=== PATIENT | female | born 1990 | race Caucasian/White ===

== ENCOUNTER 2016-11-08 20:16 | Emergency (ER) | payer OTHER ==
[2016-11-08 20:30] VITALS: BP 135/76
[2016-11-08] MEDS ORDERED: Albuterol/Ipratropium NEB.SOL* Albuterol 2.5 MG/Ipratropium 0.5 MG 3 ML INH ONE (20:47)
[2016-11-08] MEDS ORDERED: Albuterol/Ipratropium NEB.SOL* Albuterol 2.5 MG/Ipratropium 0.5 MG 3 ML ONE (20:50)
[2016-11-08] MEDS ORDERED: predniSONE TAB* 20 MG PO ONE (21:39)
[2016-11-08] MEDS ORDERED: DOXYcycline CAP(*) 100 MG PO ONE (21:40)
--- NOTE | 2016-11-08 21:55 | UC ---
Respiratory Complaint HPI - HPI Summary HPI Summary: This is a 25 yo female with preDM and hypothyroidism who recently quit smoking who presented with c/o cough, SOB, and congestion with fever and chills for the last 3d. She used her mother's nebulizer machine last night with some relief. She denies n/v or abd pain. No rashes. Her cough is dry. - History of Current Complaint Chief Complaint: UCRespiratory Stated Complaint: COUGH,SOB,BODY ACHES Hx Last Menstrual Period: taking medications to stop heavy menstraul flow - Allergies/Home Medications Allergies/Adverse Reactions: Allergies Allergy/AdvReac Type Severity Reaction Status Date / Time Pineapple Allergy Swelling Verified 11/08/16 20:30 Of Face,Lips,& Throat Home Medications: Home Medications Ferrous Gluconate TAB* [Fergon TAB*] 325 mg PO DAILY 11/08/16 [History Confirmed 11/08/16] PMH/Surg Hx/FS Hx/Imm Hx Previously Healthy: No Endocrine History: Diabetes, Thyroid Disease Other History Of: Negative For: HIV, Hepatitis B, Hepatitis C - Surgical History Surgical History: Yes Surgery Procedure, Year, and Place: hysteroscopy - Family History Known Family History: Positive: None - Social History Alcohol Use: None Substance Use Type: None Smoking Status (MU): Former Smoker Amount Used/How Often: 5 -10 cigs per day Length of Time of Smoking/Using Tobacco: ages 15 - 25 When Did the Patient Quit Smoking/Using Tobacco: Quit September 2016 Household Exposure Type: Cigarettes - Immunization History Most Recent Influenza Vaccination: no Review of Systems Constitutional: Fever Skin: Negative Eyes: Negative ENT: Nasal Discharge Respiratory: Shortness Of Breath, Cough Cardiovascular: Negative Gastrointestinal: Negative Genitourinary: Negative Motor: Negative Neurovascular: Negative Musculoskeletal: Negative Neurological: Negative Psychological: Negative All Other Systems Reviewed And Are Negative: Yes Physical Exam Triage Information Reviewed: Yes Appearance: Ill-Appearing - freq dry cough Vital Signs: Initial Vital Signs Temp 98.3 F 11/08/16 20:24 Pulse 101 11/08/16 20:24 Resp 20 11/08/16 20:24 BP 135/76 11/08/16 20:24 Pulse Ox 100 11/08/16 20:24 Vital Signs Reviewed: Yes ENT: Positive: Normal ENT inspection Respiratory Exam: Other - freq dry cough Respiratory: Positive: Lungs clear - few coarse sounds Cardiovascular Exam: Normal Cardiovascular: Positive: RRR, No Murmur Abdomen Description: Positive: Nontender, Soft Skin Exam: Normal Skin: Negative: rashes UC Diagnostic Evaluation - Laboratory O2 Sat by Pulse Oximetry: 100 Re-Evaluation - Re-Evaluation First Eval Re-Evaluation Time: 21:45 Change: Improved Comment: improved freq of cough and SOB after DuoNebs Respiratory Course/Dx - Course Course Of Treatment: This is a 25 yo female with preDM and hypothyroidism who presented with c/o cough and SOB with fever and chills x 3d. Lung exam is fairly benign. Recommend treatment for acute bronchitis. - Differential Dx/Diagnosis Differential Diagnosis/HQI/PQRI: Asthma, Bronchitis, Influenza, Laryngitis, Sinusitis Provider Diagnoses: 1. Acute bronchitis Discharge - Discharge Plan Condition: Stable Disposition: HOME Prescriptions: Albuterol HFA INHALER* [Ventolin HFA Inhaler*] 2 puff INH Q4H PRN #1 mdi PRN Reason: SOB/cough Doxycycline Hyclate [Doxycycline Hyclate Dr] 100 mg PO BID #14 tab predniSONE TAB* [Deltasone TAB*] 40 mg PO DAILY #9 tab Patient Education Materials: Acute Bronchitis (ED) Forms: *Work Release Referrals: Praveena Schmidt MD [Primary Care Provider] - If Needed Additional Instructions: Activity: As tolerated Instructions: 1. Please take medications as directed 2. Follow up with your PCP if needed
== END 2016-11-08 21:54 | disposition home or self-care (01) ==
LOC: UCCORT 20:16
DX: J20.9 Acute bronchitis, unspecified (principal); R73.03 Prediabetes; E03.9 Hypothyroidism, unspecified; Z90.710 Acquired absence of both cervix and uterus; Z87.891 Personal history of nicotine dependence
CPT/HCPCS: 99213; A9270-GY; G0463; J7512

== ENCOUNTER 2017-05-01 10:11 | Emergency (ER) | payer OTHER ==
[2017-05-01 12:56] VITALS: BP 121/68
[2017-05-01] MEDS ORDERED: Ondansetron ODT TAB* 4 MG PO ONE (13:06)
--- NOTE | 2017-05-01 13:29 | UC ---
Throat Pain/Nasal Hakeem HPI - HPI Summary HPI Summary: Pt c/o gradual onset of nasal congestion, sinus pressure and pain, nausea, vomiting X 2 weeks. - History of Current Complaint Chief Complaint: UCGeneralIllness Stated Complaint: SINUSES Time Seen by Provider: 05/01/17 12:46 Hx Obtained From: Patient Hx Last Menstrual Period: UTERINE ABLASION, DOES NOT HAVE PERIODS ?: No Onset/Duration: Gradual Onset, Lasting Weeks - 2, Still Present, Worse Since - onset Severity: Moderate Pain Intensity: 6 Associated Signs & Symptoms: Positive: Sinus Discomfort Related History: Seasonal Allergies - Epiglottits Risk Factors Epiglottis Risk Factors: Negative - Allergies/Home Medications Allergies/Adverse Reactions: Allergies Allergy/AdvReac Type Severity Reaction Status Date / Time Pineapple [Pineapple] Allergy Swelling Verified 05/01/17 12:42 Of Face,Lips,& Throat Home Medications: Home Medications Calcium Citrate 200 mg PO BID 05/01/17 [History Confirmed 05/01/17] Cyanocobalamin (Vitamin B-12) [Vitamin B-12] 1,000 mcg PO 05/01/17 [History] Multivitamin with Minerals [One Daily Complete] 1 each PO 05/01/17 [History] PMH/Surg Hx/FS Hx/Imm Hx Previously Healthy: Yes Other History Of: Negative For: HIV, Hepatitis B, Hepatitis C - Surgical History Surgical History: Yes Surgery Procedure, Year, and Place: hysteroscopy. GASTRIC BYPASS, 2016 - Family History Known Family History: Positive: Cardiac Disease - Social History Occupation: Employed Full-time Lives: With Family Alcohol Use: Rare Substance Use Type: None Smoking Status (MU): Light Every Day Tobacco Smoker Type: Cigarettes Amount Used/How Often: 3-4 CIGS PER DAY Length of Time of Smoking/Using Tobacco: ages 15 - 25 Have You Smoked in the Last Year: Yes When Did the Patient Quit Smoking/Using Tobacco: Quit September 2016 Household Exposure Type: Cigarettes - Immunization History Most Recent Influenza Vaccination: no Review of Systems Constitutional: Chills, Fatigue Skin: Negative Eyes: Negative ENT: Sinus Congestion, Sinus Pain/Tenderness Respiratory: Cough Cardiovascular: Negative Gastrointestinal: Negative Genitourinary: Negative Motor: Negative Neurovascular: Negative Musculoskeletal: Myalgia Neurological: Headache Psychological: Negative Is Patient Immunocompromised?: No All Other Systems Reviewed And Are Negative: Yes Physical Exam Triage Information Reviewed: Yes Appearance: Well-Appearing Vital Signs: Initial Vital Signs Temp 97.7 F 05/01/17 12:46 Pulse 65 05/01/17 12:46 Resp 16 05/01/17 12:46 BP 121/68 05/01/17 12:46 Pulse Ox 100 05/01/17 12:46 Eye Exam: Normal ENT Exam: Other ENT: Positive: Nasal congestion, Sinus tenderness Dental Exam: Normal Neck exam: Normal Respiratory Exam: Normal Cardiovascular Exam: Normal Abdominal Exam: Normal Abdomen Description: Positive: Nontender Musculoskeletal Exam: Normal Neurological Exam: Normal Psychological Exam: Normal Skin Exam: Normal Diagnostics - Laboratory Diagnostic Studies Completed/Ordered: RApid flu negative Throat Pain/Nasal Course/Dx - Differential Dx/Diagnosis Differential Diagnosis/HQI/PQRI: Influenza, Sinusitis Provider Diagnoses: sinusitis Discharge - Discharge Plan Condition: Stable Disposition: HOME Prescriptions: Amoxicillin PO (*) [Amoxicillin 875 MG (*)] 875 mg PO Q12H #20 tab Patient Education Materials: Sinusitis (ED) Referrals: Praveena Schmidt MD [Primary Care Provider] - If Needed
== END 2017-05-01 13:45 | disposition home or self-care (01) ==
LOC: UCCORT 10:11
DX: J32.9 Chronic sinusitis, unspecified (principal); Z87.891 Personal history of nicotine dependence
CPT/HCPCS: 87502; 99212; A9270-GY; G0463

== ENCOUNTER 2018-04-11 19:31 | Emergency (ER) | payer OTHER ==
[2018-04-11 21:12] VITALS: BP 118/60
--- NOTE | 2018-04-11 21:54 | UC ---
Throat Pain/Nasal Hakeem HPI - HPI Summary HPI Summary: 27-year-old female presents with 4 day history of sore throat. Associated with a subjective fever and chills. Denies ear pain, nasal congestion, dysphagia, cough, chest pain, shortness of breath, abdominal pain, nausea, vomiting, or diarrhea. - History of Current Complaint Chief Complaint: UCRespiratory Stated Complaint: ST Time Seen by Provider: 04/11/18 21:19 Hx Obtained From: Patient Hx Last Menstrual Period: unknown Pain Intensity: 7 - Allergies/Home Medications Allergies/Adverse Reactions: Allergies Allergy/AdvReac Type Severity Reaction Status Date / Time pineapple Allergy Swelling Verified 04/11/18 21:05 Of Face,Lips,& Throat PMH/Surg Hx/FS Hx/Imm Hx Endocrine History: Hypothyroidism Respiratory History: Asthma Psychological History: Anxiety, Depression Other History Of: Negative For: HIV, Hepatitis B, Hepatitis C - Surgical History Surgical History: Yes Surgery Procedure, Year, and Place: hysteroscopy. GASTRIC BYPASS, 2016 - Family History Known Family History: Positive: Cardiac Disease - Social History Occupation: Employed Full-time Lives: With Family Alcohol Use: Rare Substance Use Type: None Substance Use Comment - Amount & Last Used: occasional usage Smoking Status (MU): Light Every Day Tobacco Smoker Type: Cigarettes Amount Used/How Often: 3-4 CIGS PER DAY Length of Time of Smoking/Using Tobacco: ages 15 - 25 Have You Smoked in the Last Year: Yes When Did the Patient Quit Smoking/Using Tobacco: Quit September 2016 Household Exposure Type: Cigarettes - Immunization History Most Recent Influenza Vaccination: no Review of Systems All Other Systems Reviewed And Are Negative: Yes Constitutional: Positive: Fever, Chills Skin: Negative: Rash Eyes: Negative: Drainage, Eye Redness ENT: Positive: Sore Throat. Negative: Ear Ache, Nasal Discharge, Sinus Congestion, Sinus Pain/Tenderness Respiratory: Negative: Shortness Of Breath, Cough Cardiovascular: Negative: Palpitations, Chest Pain Gastrointestinal: Negative: Abdominal Pain, Vomiting, Diarrhea, Nausea Genitourinary: Positive: Negative Musculoskeletal: Positive: Negative Neurological: Positive: Negative Is Patient Immunocompromised?: No Physical Exam - Summary Physical Exam Summary: GENERAL APPEARANCE: Well developed, well nourished, alert and cooperative, and appears to be in no acute distress. EYES: Conjunctiva clear. No discharge. Vision is grossly intact. EARS: External auditory canals and tympanic membranes clear, hearing grossly intact. NOSE: No nasal congestion or discharge. THROAT: Pharyngeal erythema. No tonsilar inflammation, swelling, exudate, or lesions. Oral cavity normal. Uvula midline. Teeth and gingiva in good general condition. NECK: Neck supple, non-tender without lymphadenopathy. CARDIAC: Normal S1 and S2. No S3, S4 or murmurs. Rhythm is regular. There is no peripheral edema, cyanosis or pallor. Extremities are warm and well perfused. Capillary refill is less than 2 seconds. LUNGS: Clear to auscultation without rales, rhonchi, wheezing or diminished breath sounds. ABDOMEN: Positive bowel sounds. Soft, nondistended, nontender. No guarding or rebound. No masses or hepatosplenomegally. MUSKULOSKELETAL: ROM intact to all extremities. No joint erythema or tenderness. Normal muscular development. Normal gait. SKIN: Skin normal color, texture and turgor with no lesions or eruptions. Triage Information Reviewed: Yes Vital Signs: Initial Vital Signs Temp 97.8 F 04/11/18 21:08 Pulse 62 04/11/18 21:08 Resp 16 04/11/18 21:08 BP 118/60 04/11/18 21:08 Pulse Ox 98 04/11/18 21:08 Vital Signs Reviewed: Yes Diagnostics - Laboratory Diagnostic Studies Completed/Ordered: Rapid strep negative. Throat Pain/Nasal Course/Dx - Course Course Of Treatment: 27-year-old female presents with 4 day history of sore throat. Associated with a subjective fever and chills. Denies ear pain, nasal congestion, dysphagia, cough, chest pain, shortness of breath, abdominal pain, nausea, vomiting, or diarrhea. Afebrile. Vital signs stable. Exam revealed adult female in no acute distress with mild pharyngeal erythema without tonsillar swelling, exudate, or cervical lymphadenopathy. Remainder of exam was unremarkable. Rapid strep test was negative. Recommending symptomatic treatment for a viral pharyngitis. She is to follow-up with her primary care provider in 5 days if symptoms persist. Anticipatory guidance and warning symptoms were reviewed with the patient. - Differential Dx/Diagnosis Differential Diagnosis/HQI/PQRI: Mononucleosis, Pharyngitis, Tonsillitis, URI Provider Diagnosis: Viral pharyngitis Discharge - Sign-Out/Discharge Documenting (check all that apply): Patient Departure All imaging exams completed and their final reports reviewed: No Studies - Discharge Plan Condition: Stable Disposition: HOME Patient Education Materials: Pharyngitis (ED) Referrals: Deyanira Khan [Primary Care Provider] - 5 Days (If no improvement in symptoms.) Additional Instructions: Your rapid strep test in the clinic today was negative. Your symptoms are likely from a viral infection. Viral infections do not respond to antibiotics and are limited to the treatment of symptoms. Viral infections typically run their course in 7-10 days. Drink plenty of fluids to avoid dehydration especially if you are running any fever. Use salt water gargles several times a day. Take over the counter acetaminophen (Tylenol) or ibuprofen (Advil, Motrin) according to directions as needed for pain or fever. You may also use Chloraseptic spray or Cepacol lonzenges according to directions which contain a numbing medication and can provide some temporary relief from your sore throat. Return here or follow up with your primary care provider in 7 days if symptoms persist. Seek immediate medical attention in the emergency room if you have fever greater than 100.5 F despite taking acetaminophen or ibuprofen, are unable to swallow or develop drooling, are unable to open your mouth fully, are unable to eat or drink, have pain that is not relieved with over the counter pain medication, or have any difficulty breathing. - Billing Disposition and Condition Condition: STABLE Disposition: Home - Attestation Statements Provider Attestation: Per institutional requirements, I have reviewed the chart, however, I was not consulted specifically or made aware of this patient by the midlevel provider. I did not personally evaluate, interact with , or disposition this patient.
== END 2018-04-11 22:06 | disposition home or self-care (01) ==
LOC: UCCORT 19:31
DX: J02.9 Acute pharyngitis, unspecified (principal); J45.909 Unspecified asthma, uncomplicated; Z91.018 Allergy to other foods; Z98.84 Bariatric surgery status; Z87.891 Personal history of nicotine dependence
CPT/HCPCS: 87651; 99211; G0463

== ENCOUNTER 2018-06-18 19:41 | Emergency (ER) | payer OTHER ==
[2018-06-18 20:41] VITALS: BP 118/68
[2018-06-18] MEDS ORDERED: Acetaminophen TAB* 325 MG PO ONE (20:54)
--- NOTE | 2018-06-18 20:57 | UC ---
UC General HPI - HPI Summary HPI Summary: PER TRIAGE, sx started 06/16/18-headache, sinus congestion, runny nose, chest congestion, cough, upper body aches. hx asthma. - History of Current Complaint Chief Complaint: UCGeneralIllness Stated Complaint: BODY ACHES, COUGH, DIARRHEA Time Seen by Provider: 06/18/18 20:42 Hx Obtained From: Patient Hx Last Menstrual Period: ablation 2016 Timing: Constant Pain Intensity: 8 Associated Signs & Symptoms: Positive: Diarrhea - X1, Vomiting - X1 - Allergy/Home Medications Allergies/Adverse Reactions: Allergies Allergy/AdvReac Type Severity Reaction Status Date / Time ibuprofen Allergy Unknown gastric Verified 06/18/18 20:43 bypass pineapple Allergy Swelling Verified 06/18/18 20:43 Of Face,Lips,& Throat PMH/Surg Hx/FS Hx/Imm Hx - Additional Past Medical History Additional PMH: gastric bypass Endocrine History: Thyroid Disease Respiratory History: Asthma Psychological History: Anxiety, Depression Other History Of: Negative For: HIV, Hepatitis B, Hepatitis C - Surgical History Surgical History: Yes Surgery Procedure, Year, and Place: hysteroscopy. GASTRIC BYPASS, 2016. D & C with ablation 2016 - Family History Known Family History: Positive: Cardiac Disease - Social History Alcohol Use: Rare Substance Use Type: None Substance Use Comment - Amount & Last Used: occasional usage Smoking Status (MU): Former Smoker Type: Cigarettes Amount Used/How Often: 3-4 CIGS PER DAY Length of Time of Smoking/Using Tobacco: ages 15 - 25 Have You Smoked in the Last Year: Yes When Did the Patient Quit Smoking/Using Tobacco: 2 weeks ago Household Exposure Type: Cigarettes - Immunization History Most Recent Influenza Vaccination: no Review of Systems All Other Systems Reviewed And Are Negative: Yes ENT: Positive: Sinus Congestion Respiratory: Positive: Cough Gastrointestinal: Positive: Vomiting - X1, Diarrhea - X1. Negative: Abdominal Pain Musculoskeletal: Positive: Myalgia Neurological: Positive: Headache Physical Exam Triage Information Reviewed: Yes Appearance: Well-Appearing Vital Signs: Initial Vital Signs Temp 97.7 F 06/18/18 20:38 Pulse 83 06/18/18 20:38 Resp 17 06/18/18 20:38 BP 118/68 06/18/18 20:38 Pulse Ox 100 06/18/18 20:38 Vital Signs Reviewed: Yes Eyes: Positive: Conjunctiva Clear ENT: Positive: Pharyngeal erythema, Nasal congestion, Nasal drainage - CLEAR, TMs normal Neck: Positive: Supple, Nontender, No Lymphadenopathy Respiratory: Positive: Lungs clear, Normal breath sounds, No respiratory distress Cardiovascular: Positive: RRR, No Murmur Abdomen Description: Positive: Nontender, No Organomegaly, Soft. Negative: Distended, Guarding Bowel Sounds: Positive: Present Musculoskeletal: Positive: ROM Intact Neurological: Positive: Alert Psychological: Positive: Age Appropriate Behavior Skin Exam: Normal Course/Dx - Course Course Of Treatment: RAPID FLU=NEGATIVE - Differential Dx - Multi-Symptom Differential Diagnoses: Other - NO INDICATION FOR ANTIBIOTICS. - Diagnoses Provider Diagnosis: Viral syndrome Discharge - Sign-Out/Discharge Documenting (check all that apply): Patient Departure All imaging exams completed and their final reports reviewed: No Studies - Discharge Plan Condition: Stable Disposition: HOME Prescriptions: Albuterol HFA INHALER* [Ventolin HFA Inhaler*] 2 puff INH Q6H PRN #1 mdi PRN Reason: Cough Patient Education Materials: Viral Syndrome (ED) Forms: *Work Release Referrals: Deyanira Khan [Primary Care Provider] - Additional Instructions: FOLLOW UP PRIMARY CARE IF NOT BETTER IN 3-5 DAYS OR SOONER IF WORSE. - Billing Disposition and Condition Condition: STABLE Disposition: Home
[2018-06-18 21:01] LABS: Influenza A Molecular NEGATIVE (Negative); Influenza B Molecular NEGATIVE (Negative)
== END 2018-06-18 21:09 | disposition home or self-care (01) ==
LOC: UCCORT 19:41
DX: B34.9 Viral infection, unspecified (principal); R05 Cough; R51 Headache; R09.81 Nasal congestion; R19.7 Diarrhea, unspecified; R11.10 Vomiting, unspecified; R09.89 Other specified symptoms and signs involving the circulatory and respiratory systems; J45.909 Unspecified asthma, uncomplicated; Z88.8 Allergy status to other drugs, medicaments and biological substances; Z91.018 Allergy to other foods
CPT/HCPCS: 99212; A9270-GY; G0463

== ENCOUNTER 2018-07-06 13:36 | Emergency (ER) | payer OTHER ==
[2018-07-06 13:55] VITALS: BP 112/55
--- NOTE | 2018-07-06 14:13 | UC ---
Throat Pain/Nasal Hakeem HPI - HPI Summary HPI Summary: Patient has been ill with cold symptoms over the past 2 weeks and now with head congestion, sinus pressure and productive cough of greenish sputum. She does not feel short of breath. She has no fever or chills. She has no history of asthma as an adult however she does carry an inhaler which is and would like a refill of that. - History of Current Complaint Chief Complaint: UCGeneralIllness Stated Complaint: COUGH,BACK/CHEST PAIN,ALVAREZ Time Seen by Provider: 07/06/18 13:53 Hx Obtained From: Patient Hx Last Menstrual Period: ablation 2017 ?: No Onset/Duration: Gradual Onset Severity: Mild Pain Intensity: 7 Cough: Productive - Dr. cough of greenish yellow sputum. Associated Signs & Symptoms: Positive: Sinus Discomfort, Nasal Discharge - Epiglottits Risk Factors Epiglottis Risk Factors: Negative - Allergies/Home Medications Allergies/Adverse Reactions: Allergies Allergy/AdvReac Type Severity Reaction Status Date / Time ibuprofen Allergy Unknown gastric Verified 06/18/18 20:43 bypass pineapple Allergy Swelling Verified 06/18/18 20:43 Of Face,Lips,& Throat PMH/Surg Hx/FS Hx/Imm Hx Previously Healthy: Yes Endocrine History: Thyroid Disease Other History Of: Negative For: HIV, Hepatitis B, Hepatitis C - Surgical History Surgical History: Yes Surgery Procedure, Year, and Place: hysteroscopy. GASTRIC BYPASS, 2016. D & C with ablation 2016 - Family History Known Family History: Positive: Cardiac Disease - Social History Alcohol Use: Rare Substance Use Type: None Substance Use Comment - Amount & Last Used: occasional usage Smoking Status (MU): Former Smoker Type: Cigarettes Amount Used/How Often: 3-4 CIGS PER DAY Length of Time of Smoking/Using Tobacco: ages 15 - 25 Have You Smoked in the Last Year: Yes When Did the Patient Quit Smoking/Using Tobacco: 2 weeks ago Household Exposure Type: Cigarettes - Immunization History Most Recent Influenza Vaccination: no Review of Systems All Other Systems Reviewed And Are Negative: Yes ENT: Positive: Nasal Discharge, Sinus Congestion, Sinus Pain/Tenderness - Bilateral maxillary tenderness. Respiratory: Positive: Cough - Productive cough of green sputum. No shortness of breath. Is Patient Immunocompromised?: No Physical Exam Triage Information Reviewed: Yes Appearance: Well-Appearing, No Pain Distress, Well-Nourished Vital Signs: Initial Vital Signs Temp 98.5 F 07/06/18 13:50 Pulse 80 07/06/18 13:50 Resp 16 07/06/18 13:50 BP 112/55 07/06/18 13:50 Pulse Ox 99 07/06/18 13:50 Vital Signs Reviewed: Yes Eye Exam: Normal ENT: Positive: Pharynx normal - Yellowish post nasal drainage posteriorly., Nasal congestion, Nasal drainage - Turbinates inflamed with yellowish nasal coryza. Tympanic membrane is mildly injected but with good land aguilar and light reflex, right tympanic membrane pearly lopez with good land aguilar and light reflex., Sinus tenderness - Bilateral maxillary sinus tenderness on palpation., Uvula midline. Negative: Tonsillar swelling, Tonsillar exudate, Trismus, Muffled voice, Hoarse voice Neck: Positive: Supple, Nontender, No Lymphadenopathy Respiratory: Positive: Lungs clear, Normal breath sounds, No respiratory distress, No accessory muscle use Cardiovascular: Positive: RRR, No Murmur, Pulses Normal, Brisk Capillary Refill Abdomen Description: Positive: Nontender, No Organomegaly, Soft Bowel Sounds: Positive: Present Musculoskeletal Exam: Normal Neurological Exam: Normal Psychological Exam: Normal Skin Exam: Normal Throat Pain/Nasal Course/Dx - Course Course Of Treatment: Patient has been comfortable here. We did treat her for sinusitis with doxycycline and I gave her refill of her albuterol inhaler. She was advised not to take her calcium supplement or any other vitamins or dairy products 2 hours prior to taking doxycycline and 2 hours after. - Differential Dx/Diagnosis Provider Diagnosis: Sinusitis, Bronchitis Discharge - Sign-Out/Discharge Documenting (check all that apply): Patient Departure All imaging exams completed and their final reports reviewed: No Studies - Discharge Plan Condition: Fair Disposition: HOME Prescriptions: Albuterol HFA INHALER* [Ventolin HFA Inhaler*] 2 puff INH Q4H PRN 5 Days #1 mdi PRN Reason: Wheezing DOXYcycline CAP(*) [DOXYcycline 100MG CAP(*)] 100 mg PO BID 10 Days #20 cap Patient Education Materials: Sinusitis (ED), Acute Bronchitis (ED) Referrals: Deyanira Khan [Primary Care Provider] - Additional Instructions: Increase fluids, rest, no dairy products, antacids or your calcium supplement 2 hours prior to taking the doxycycline and 2 hours after taking the doxycycline however be sure and take it with food. Definite follow-up with her primary care provider on Tuesday or Tuesday if no improvement. Use albuterol inhaler 2 puffs every 4-6 hours as needed for any more tight cough. - Billing Disposition and Condition Condition: FAIR Disposition: Home
== END 2018-07-06 14:15 | disposition home or self-care (01) ==
LOC: UCCORT 13:36
DX: J32.9 Chronic sinusitis, unspecified (principal); J40 Bronchitis, not specified as acute or chronic; Z87.891 Personal history of nicotine dependence; Z88.8 Allergy status to other drugs, medicaments and biological substances; Z91.018 Allergy to other foods
CPT/HCPCS: 99212; G0463

== ENCOUNTER 2019-05-09 14:31 | Emergency (ER) | payer MEDICAID ==
[2019-05-09 14:45] VITALS: BP 104/50
--- NOTE | 2019-05-09 15:05 | UC ---
Complaint Female HPI - HPI Summary HPI Summary: 28-year-old female presenting with complaint of RLQ pain and red/brown vaginal discharge on toilet paper that began today. Patient also notes urinary frequency and cloudy urine 1 week. States pain radiates to her right lower back. Notes some nausea. Denies vomiting and diarrhea. Denies decreased appetite. Denies changes in BMs. Denies fever and chills. Denies chance of or concern for STIs. A2. States no longer gets menstrual periods after uterine ablation 2 years ago. PMHx significant for two miscarriages ~10 years ago. Denies history of ovarian cysts. PSHx significant for gastric bypass and uterine ablation - History Of Current Complaint Chief Complaint: UCGU Stated Complaint: URINARY CONCERN Hx Obtained From: Patient Hx Last Menstrual Period: ablation Pain Intensity: 8 Pain Scale Used: 0-10 Numeric - Allergies/Home Medications Allergies/Adverse Reactions: Allergies Allergy/AdvReac Type Severity Reaction Status Date / Time ibuprofen Allergy Unknown gastric Verified 05/09/19 14:41 bypass pineapple Allergy Swelling Verified 05/09/19 14:41 Of Face,Lips,& Throat Home Medications: Home Medications Levothyroxine Sodium [Levoxyl] 200 mcg PO QAM 01/05/14 [History Confirmed ] Ferrous Gluconate TAB* [Fergon TAB*] 325 mg PO DAILY 11/08/16 [History Confirmed 05/09/19] Calcium Citrate 200 mg PO BID 05/01/17 [History Confirmed 05/09/19] Cyanocobalamin (Vitamin B-12) [Vitamin B-12] 1,000 mcg PO DAILY 05/01/17 [ History Confirmed 05/09/19] Multivitamin with Minerals [One Daily Complete] 1 each PO DAILY 05/01/17 [ History Confirmed 05/09/19] Buspirone HCl 10 mg PO DAILY PRN 11/28/17 [History Confirmed 05/09/19] Escitalopram Oxalate [Lexapro 20 mg] 20 mg PO DAILY 11/28/17 [History Confirmed 05/09/19] lamoTRIgine [Lamictal] 100 mg PO DAILY 11/28/17 [History Confirmed 05/09/19] Albuterol HFA INHALER* [Ventolin HFA Inhaler*] 2 puff INH Q4H PRN 5 Days #1 mdi 07/06/18 [Rx Confirmed 05/09/19] PMH/Surg Hx/FS Hx/Imm Hx Other History Of: Negative For: HIV, Hepatitis B, Hepatitis C - Surgical History Surgical History: None Surgery Procedure, Year, and Place: hysteroscopy; GASTRIC BYPASS, 2016; D & C with ablation 2016 - Family History Known Family History: Positive: Cardiac Disease - Social History Alcohol Use: Rare Substance Use Type: None Substance Use Comment - Amount & Last Used: occasional usage Smoking Status (MU): Former Smoker Type: Cigarettes Amount Used/How Often: 3-4 CIGS PER DAY Length of Time of Smoking/Using Tobacco: ages 15 - 25 Have You Smoked in the Last Year: Yes When Did the Patient Quit Smoking/Using Tobacco: 03/2019 Household Exposure Type: Cigarettes - Immunization History Most Recent Influenza Vaccination: no Review of Systems All Other Systems Reviewed And Are Negative: Yes Constitutional: Positive: Negative Respiratory: Positive: Negative Cardiovascular: Positive: Negative Gastrointestinal: Positive: Abdominal Pain - right pelvic pain, Nausea. Negative: Vomiting, Diarrhea Genitourinary: Positive: Frequency, Vaginal/Penile Discharge - red/brown discharge Musculoskeletal: Positive: Negative Neurological/Mental Status: Positive: Negative Physical Exam - Summary Physical Exam Summary: Vital Signs Reviewed: Yes A+Ox3, no distress Eyes: Conjunctiva Clear ENT: Hearing grossly normal Neck: Positive: Supple Respiratory: Positive: No respiratory distress, No accessory muscle use + CTA throughout no w/r Cardiovascular: RRR nl s1, s2 no m/r Abd: soft + BS, +TTP RLQ, no distention, no guarding Musculoskeletal Exam: PALMA x 4 without difficulty Neurological: Positive: Alert Psychological: Positive: age appropriate behavior Skin: Positive: no rash, no ecchymosis Vital Signs: Initial Vital Signs Temp 98.2 F 05/09/19 14:42 Pulse 67 05/09/19 14:42 Resp 15 05/09/19 14:42 BP 104/50 05/09/19 14:42 Pulse Ox 100 05/09/19 14:42 Lab Results 05/09/19 05/09/19 Range/Units 15:10 15:11 POC Urine Color Yellow POC Urine Clarity Clear POC Urine pH 6.5 (5-9) POC Ur Specif [place] 1.020 (1.010-1.030) POC Urine Protein Negative (Negative) POC Ur Glucose (UA) Negative (Negative) POC Urine Ketones Negative (Negative) POC Urine Blood Trace-intact (Negative) POC Urine Nitrite Negative (Negative) POC Urine Bilirubin Negative (Negative) POC Urine Urobilinogen 0.2 (Negative) POC U Leukocyte Esteras Negative (Negative) POC Ur Test Negative (Negative) Complaint Female Dx - Course Course Of Treatment: UA positive for trace blood. Negative urine . Patient declined pelvic exam. Discussed these results with patient and concern for possible ovarian cyst/torsion, or appendicitis. I informed the patient that it is recommended she receive further imaging and possible lab work in the emergency department to rule out ovarian cyst, ovarian torsion, and appendicitis. The patient voiced understanding and agreed to herself to [place] ED upon departure from the urgent care. Patient stable and in no pain distress upon departure. Discussed patient with Dr. Brandt who also agreed with plan. - Differential Dx/Diagnosis Differential Diagnosis/HQI/PQRI: Appendicitis, Ectopic, Ovarian Cyst, Ovarian Torsion, Pelvic Inflammatory Disease, Sexually Transmitted Disease, Urinary Tract Infection Provider Diagnosis: Right lower quadrant abdominal pain, Vaginal spotting, Urinary frequency Discharge ED - Sign-Out/Discharge Documenting (check all that apply): Patient Departure All imaging exams completed and their final reports reviewed: No Studies - Discharge Plan Condition: Stable Disposition: HOME-RECOMMEND TO ED Patient Education Materials: Pelvic Pain (ED) Additional Instructions: The provider that evaluated you today thinks that you need additional testing that can be completed the emergency department. It is recommended that you go directly to emergency department for further evaluation. This evaluation included blood work or imaging. This testing will be directed and decided by the provider that evaluates you at the emergency department. If pain becomes worse, you feel lightheaded, or you have any other concerns while you are being driven to emergency department, it is recommended to pullover and contact 911. - Billing Disposition and Condition Condition: STABLE Disposition: Home-Recommend to ED
== END 2019-05-09 15:40 | disposition home health service (06) ==
LOC: UCCORT 14:31
DX: R10.31 Right lower quadrant pain (principal); N93.9 Abnormal uterine and vaginal bleeding, unspecified; R35.0 Frequency of micturition; Z87.891 Personal history of nicotine dependence; Z88.6 Allergy status to analgesic agent; Z91.018 Allergy to other foods
CPT/HCPCS: 81003; 84702; 99212; G0463

== ENCOUNTER 2021-02-15 14:06 | Inpatient (IN) ==
[2021-02-15 15:50] LABS: ABS Eosinophils 0.1 10^3/ul (0-0.6); ABS Monocytes 0.3 10^3/ul (0-0.8); ABS Neutrophils 3.3 10^3/ul (1.5-7.7); Eosinophil % 1.5 %; Hematocrit 42 % (35-47); Hemoglobin 14.5 g/dL (12.0-16.0); Lymphocyte % 34.6 %; Mean Corpuscular HGB Conc 35 g/dL (31-36); Mean Corpuscular Hemoglobin 29 pg (27-31); Mean Corpuscular Volume 84 fL (80-97); Mean Platelet Volume 9.4 fL (7.4-10.4); Platelet Count 172 10^3/uL (150-450); Red Blood Count 4.93 10^6 /uL (3.70-4.87); Red Cell Distribution Width 13 % (10-15); White Blood Count 5.8 10^3/uL (3.5-10.8)
[2021-02-15 15:58] LABS: Urine Appearance Cloudy; Urine Bilirubin Negative (Negative); Urine Blood Negative (Negative); Urine Color Yellow; Urine Glucose Negative (Negative); Urine Ketones Negative (Negative); Urine Nitrite Negative (Negative); Urine Protein Negative (Negative); Urine Specific Gravity 1.011 (1.002-1.030); Urine Urobilinogen Negative (Negative)
[2021-02-15 16:06] LABS: Urine Benzodiazepine Screen None Detected (None Detect); Urine Cannabinoids Screen Presumptive Positive (None Detect); Urine Opiates Screen None Detected (None Detect)
[2021-02-15 16:07] LABS: ALT 12 U/L (7-52); AST 17 U/L (13-39); Albumin 4.4 g/dL (3.2-5.2); Albumin/Globulin Ratio 1.6 (1-3); Alkaline Phosphatase 27 U/L (35-149); Anion Gap 5 mmol/L (2-11); Blood Urea Nitrogen 7 mg/dL (6-24); CO2 Carbon Dioxide 29 mmol/L (22-32); Calcium 9.4 mg/dL (8.6-10.3); Chloride 104 mmol/L (101-111); Globulin 2.7 g/dL (2-4); Glucose 98 mg/dL (70-100); Sodium 138 mmol/L (135-145); Total Protein 7.1 g/dL (6.4-8.9); eGFR CKD-EPI 100.3 (>60)
[2021-02-15 16:14] LABS: HCG Pregnancy < 0.60 mIU/mL
[2021-02-15 16:31] LABS: Rapid COVID-19 Molecular Undetected (Undetected)
[2021-02-15 16:35] LABS: Acetaminophen < 15 mcg/mL; Alcohol, S < 13 mg/dL (<13); Salicylate < 2.50 mg/dL (<30)
[2021-02-15 16:54] LABS: Free T4 1.44 ng/dL (0.61-1.12); TSH Ultra Thyroid Stim Horm 0.02 mcIU/mL (0.34-5.60); Urine Amorphous Crystals Present (Absent); Urine Bacteria 1+ (Absent); Urine Red Blood Cell Absent (Absent); Urine Squamous Epithelial Cell Present (Absent); Urine White Blood Cell Trace(0-5/hpf) (Absent)
[2021-02-15] MEDS ORDERED: Albuterol HFA INHALER 8 gm MDI INH PRN (18:00)
[2021-02-15] MEDS: Calcium Citrate 200 mg TAB PO SCH (21:56)
[2021-02-16] MEDS: Multivitamins/Minerals TAB PO SCH (08:28)
[2021-02-16 08:32] LABS: HDL Cholesterol 43.7 mg/dL
[2021-02-16] MEDS ORDERED: Cholecalciferol (VIT D3) 1,000 unit TAB PO SCH (09:00)
[2021-02-16] MEDS: Calcium Citrate 200 mg TAB PO SCH ×2 (14:13→20:44)
[2021-02-16] MEDS: Cholecalciferol (VIT D3) 1,000 unit TAB PO SCH (20:44)
[2021-02-17] MEDS: Calcium Citrate 200 mg TAB PO SCH (08:30)
[2021-02-17] MEDS: Multivitamins/Minerals TAB PO SCH (08:31)
[2021-02-17] MEDS ORDERED: Nicotine GUM 2MG FRUIT FLAVOR PO PRN (08:57)
[2021-02-17] MEDS: Nicotine PATCH 21 MG/24 HR PATCH TRANSDERM SCH (13:46)
[2021-02-17] MEDS ORDERED: Calcium/Vitamin D TAB 250/125 TAB PO SCH (14:00)
[2021-02-17] MEDS ORDERED: Multivitamins/Minerals TAB PO SCH (21:00)
[2021-02-17] MEDS: Cholecalciferol (VIT D3) 1,000 unit TAB PO SCH (21:08)
[2021-02-17] MEDS: Calcium/Vitamin D TAB 250/125 TAB PO SCH (21:08)
[2021-02-18] MEDS: Nicotine PATCH 21 MG/24 HR PATCH TRANSDERM SCH (08:40)
[2021-02-18] MEDS: Multivitamins/Minerals TAB PO SCH (08:41)
[2021-02-18] MEDS: Cholecalciferol (VIT D3) 1,000 unit TAB PO SCH (21:32)
[2021-02-18] MEDS: Calcium/Vitamin D TAB 250/125 TAB PO SCH (21:37)
[2021-02-19] MEDS: Multivitamins/Minerals TAB PO SCH (07:57)
[2021-02-19] MEDS: Nicotine PATCH 21 MG/24 HR PATCH TRANSDERM SCH (07:59)
[2021-02-19 08:33] VITALS: BP 127/71
== END 2021-02-19 16:30 | disposition home or self-care (01) | DRG 751 ==
LOC: ED 14:06 → EDHOLD 16:52 → BSU 18:43
PROVIDERS: ADMIT Psychiatry & Neurology Psychiatry; ATTEND Psychiatry & Neurology Psychiatry